=== PATIENT | female | born 1975 | race American Indian/Alaskan Native ===

== ENCOUNTER 2016-05-25 17:17 | Emergency (ER) | payer BC ==
[2016-05-25 18:00] VITALS: BP 119/84
[2016-05-25 18:50] LABS: Hematocrit 32.8 % (30.3-42.9); Hemoglobin 10.7 gm/dl (10.1-14.3); Mean Corpuscular HGB Conc 33 % (30-34); Mean Corpuscular Hemoglobin 25 pg (28-32); Mean Corpuscular Volume 77 fl (79-97); Mean Platelet Volume 8.9 fl (6-12); Platelet Count 342 K/mm3 (140-440); Red Blood Count 4.25 M/mm3 (3.65-5.03); Red Cell Distribution Width 17.2 % (13.2-15.2); White Blood Count 7.9 K/mm3 (4.5-11.0)
[2016-05-25 18:51] LABS: Basophils % (Auto) 0.8 % (0.0-1.8); Diff Status Complete
[2016-05-25 18:55] LABS: BUN/Creatinine Ratio 11.66; Blood Urea Nitrogen 7 mg/dL (7-17); Calcium 8.8 mg/dL (8.4-10.2); Carbon Dioxide 25 mmol/L (22-30); Chloride 102.7 mmol/L (98-107); Glucose 85 mg/dL (65-100); Potassium 4.2 mmol/L (3.6-5.0); Sodium 140 mmol/L (137-145)
[2016-05-25 19:05] LABS: Anion Gap 17 mmol/L
[2016-05-25 22:39] LABS: Bilirubin,Urine NEG (Negative); Blood,Urine NEG (Negative); Ketones,Urine TR mg/dL (Negative); Leukocyte Esterase,Urine NEG (Negative); Mucus,Urine 3+ /HPF; Nitrite,Urine NEG (Negative); Protein,Urine <15 mg/dL mg/dL (Negative); Urobilinogen,Urine < 2.0 mg/dL (<2.0)
[2016-05-25] MEDS ORDERED: MORPHINE IV ONE (22:51)
[2016-05-25] MEDS ORDERED: TORADOL IV ONE (22:51)
[2016-05-25] MEDS ORDERED: NACL 0.9% 1000 ML 1,000 ML IV ONE (22:52)
--- NOTE | 2016-05-25 22:53 | Emergency Department Report ---
ED General Adult HPI - General Chief complaint: Abdominal Pain Stated complaint: ABD PAIN/NAUSEA Time Seen by Provider: 05/25/16 22:39 Source: patient, RN notes reviewed Mode of arrival: Ambulatory Limitations: No Limitations - History of Present Illness Initial comments: This is a 40-year-old female, previously unknown to me. She does not have a primary care doctor. Denies a history of abdominal surgeries. Presents to the ER complaining of right upper quadrant pain and left lower quadrant pain. This is associated with nausea and vomiting. Last menstrual period was 2 weeks ago. Abdominal pain is achy, increases with palpation, decreases with rest. She reports feeling intermittently constipated, and has describes intermittent diarrhea. No vaginal discharge that she is aware of. Symptoms are intermittent. -: Gradual Location: abdomen Quality: aching Consistency: intermittent Improves with: rest Worsens with: movement Associated Symptoms: loss of appetite, malaise. denies: confusion, chest pain, cough, diaphoresis, headaches, shortness of breath, syncope, weakness - Related Data Previous Rx's Medication Instructions Recorded Last Taken Type Dicyclomine [Bentyl] 10 mg PO QID PRN #20 capsule 05/26/16 Unknown Rx Ondansetron [Zofran Odt] 4 mg PO QID PRN #20 tab.rapdis 05/26/16 Unknown Rx Allergies Allergy/AdvReac Type Severity Reaction Status Date / Time No Known Allergies Allergy Verified 05/25/16 22:53 ED Review of Systems ROS: Stated complaint: ABD PAIN/NAUSEA Other details as noted in HPI Constitutional: denies: fever Eyes: denies: vision change ENT: denies: epistaxis Respiratory: denies: cough, shortness of breath, wheezing Cardiovascular: denies: chest pain, palpitations Gastrointestinal: abdominal pain, nausea, vomiting, diarrhea Genitourinary: as per HPI. denies: dysuria, discharge Musculoskeletal: denies: back pain Skin: denies: lesions Neurological: denies: headache ED Past Medical Hx - Past Medical History Previous Medical History?: No - Surgical History Past Surgical History?: No - Social History Smoking Status: Never Smoker Substance Use Type: None - Medications Home Medications: Home Medications Medication Instructions Recorded Confirmed Last Taken Type Dicyclomine [Bentyl] 10 mg PO QID PRN #20 capsule 05/26/16 Unknown Rx Ondansetron [Zofran Odt] 4 mg PO QID PRN #20 tab.rapdis 05/26/16 Unknown Rx ED Physical Exam - General Limitations: No Limitations General appearance: alert, in no apparent distress - Head Head exam: Present: atraumatic, normocephalic - Eye Eye exam: Present: normal appearance, EOMI. Absent: nystagmus - ENT ENT exam: Present: normal exam, normal orophraynx, mucous membranes moist, normal external ear exam - Neck Neck exam: Present: normal inspection, full ROM. Absent: tenderness, meningismus - Respiratory Respiratory exam: Present: normal lung sounds bilaterally. Absent: respiratory distress, wheezes, rales, rhonchi, stridor, chest wall tenderness - Cardiovascular Cardiovascular Exam: Present: regular rate, normal rhythm, normal heart sounds. Absent: bradycardia, tachycardia, irregular rhythm, systolic murmur, diastolic murmur, rubs, gallop - GI/Abdominal GI/Abdominal exam: Present: soft, tenderness, normal bowel sounds, other (there is minimal right upper quadrant tenderness. There is negative Huynh sign. There is no right lower quadrant tenderness. There is left lower quadrant tenderness.). Absent: distended, guarding, rebound, rigid, pulsatile mass - External exam: Present: normal external exam Speculum exam: Present: normal speculum exam Bi-manual exam: Present: normal bi-manual exam, other (escorted by MOSES Nunez). Absent: cervical motion tendernes, adnexal tenderness, uterine enlargement, uterine tenderness - Extremities Exam Extremities exam: Present: normal inspection, full ROM, normal capillary refill. Absent: tenderness, pedal edema, joint swelling, calf tenderness - Back Exam Back exam: Present: normal inspection, full ROM. Absent: tenderness, CVA tenderness (R), CVA tenderness (L), muscle spasm, paraspinal tenderness, vertebral tenderness - Neurological Exam Neurological exam: Present: alert, oriented X3, normal gait, other (Extraocular movements intact. Tongue midline. No facial droop. Facial sensation intact to light touch in the V1, V2, V3 distribution bilaterally. 5 and 5 strength in 4 extremities.. Sensation is intact to light touch in 4 extremities.). Absent : motor sensory deficit - Psychiatric Psychiatric exam: Present: normal affect, normal mood - Skin Skin exam: Present: warm, dry, intact, normal color. Absent: rash ED Course Vital Signs 05/25/16 17:57 Temperature 99.0 F Pulse Rate 84 Respiratory 18 Rate Blood Pressure 119/84 O2 Sat by Pulse 100 Oximetry - Reevaluation(s) Reevaluation #1: 05/26/16 00:42 Differential diagnosis: Renal colic, biliary disease, ovarian cyst, pelvic inflammatory disease, urinary tract infection, constipation, Musa-Newton Oniel syndrome Assessment and plan: 40-year-old female with low-grade temperature, respiratory quadrant tenderness, left lower quadrant tenderness. She has a benign gynecologic examination. Laboratory studies not consistent with pancreatitis, pyelonephritis, or urinary tract infection. She is not . A wet prep demonstrated trichomoniasis. She will be treated empirically with metronidazole, azithromycin, ceftriaxone. She was given pain medication and IV fluids. I think biliary disease/cholecystitis is unlikely given normal liver function tests, normal lipase, and lack of a positive Huynh sign. A CT scan of the abdomen and pelvis with IV contrast is pending. Reevaluation #2: 05/26/16 01:21 CT scan demonstrates no surgical disease. Enteritis is suggested , which goes along with the patient's history of nausea, vomiting, diarrhea. Wet prep demonstrated trichomoniasis, she is treated empirically with ceftriaxone, doxycycline, azithromycin. She is tolerating liquid feeds. She will be discharged with pain medication, nausea medication, instructions to follow up with primary care and gynecology. Return precautions are reviewed. ED Medical Decision Making - Lab Data Result diagrams: 05/25/16 18:15 05/25/16 18:15 Vital Signs 05/25/16 17:57 Temperature 99.0 F Pulse Rate 84 Respiratory 18 Rate Blood Pressure 119/84 O2 Sat by Pulse 100 Oximetry Lab Results 05/25/16 05/25/16 05/25/16 Range/Units 18:15 18:15 22:40 WBC 7.9 (4.5-11.0) K/mm3 RBC 4.25 (3.65-5.03) M/mm3 Hgb 10.7 (10.1-14.3) gm/dl Hct 32.8 (30.3-42.9) % MCV 77 L (79-97) fl MCH 25 L (28-32) pg MCHC 33 (30-34) % RDW 17.2 H (13.2-15.2) % Plt Count 342 (140-440) K/mm3 Lymph % (Auto) 30.4 (13.4-35.0) % Coles % (Auto) 6.7 (0.0-7.3) % Eos % (Auto) 2.0 (0.0-4.3) % Baso % (Auto) 0.8 (0.0-1.8) % Lymph # 2.4 (1.2-5.4) K/mm3 Coles # 0.5 (0.0-0.8) K/mm3 Eos # 0.2 (0.0-0.4) K/mm3 Baso # 0.1 (0.0-0.1) K/mm3 Add Manual Diff Complete Seg Neutrophils % 60.1 (40.0-70.0) % Seg Neutrophils # 4.7 (1.8-7.7) K/mm3 Sodium 140 (137-145) mmol/L Potassium 4.2 (3.6-5.0) mmol/L Chloride 102.7 (98-107) mmol/L Carbon Dioxide 25 (22-30) mmol/L Anion Gap 17 mmol/L BUN 7 (7-17) mg/dL Creatinine 0.6 L (0.7-1.2) mg/dL Estimated GFR > 60 ml/min BUN/Creatinine Ratio 11.66 % Glucose 85 (65-100) mg/dL Calcium 8.8 (8.4-10.2) mg/dL Total Bilirubin (0.1-1.2) mg/dL Direct Bilirubin (0-0.2) mg/dL Indirect Bilirubin mg/dL AST (5-40) units/L ALT (7-56) units/L Alkaline Phosphatase (35-129) units/L Total Protein (6.3-8.2) g/dL Albumin (3.9-5) g/dL Albumin/Globulin Ratio % Lipase (13-60) units/L Urine Color (Yellow) Urine Turbidity (Clear) Urine pH (5.0-7.0) Ur Specific [place] (1.003-1.030) Urine Protein (Negative) mg/dL Urine Glucose (UA) (Negative) mg/dL Urine Ketones (Negative) mg/dL Urine Blood (Negative) Urine Nitrite (Negative) Urine Bilirubin (Negative) Urine Urobilinogen (<2.0) mg/dL Ur Leukocyte Esterase (Negative) Urine WBC (Auto) (0.0-6.0) /HPF Urine RBC (Auto) (0.0-6.0) /HPF U Epithel Cells (Auto) (0-13.0) /HPF Urine Mucus /HPF Urine HCG, Qual Negative (Negative) 05/25/16 05/25/16 Range/Units Unknown Unknown WBC (4.5-11.0) K/mm3 RBC (3.65-5.03) M/mm3 Hgb (10.1-14.3) gm/dl Hct (30.3-42.9) % MCV (79-97) fl MCH (28-32) pg MCHC (30-34) % RDW (13.2-15.2) % Plt Count (140-440) K/mm3 Lymph % (Auto) (13.4-35.0) % Coles % (Auto) (0.0-7.3) % Eos % (Auto) (0.0-4.3) % Baso % (Auto) (0.0-1.8) % Lymph # (1.2-5.4) K/mm3 Coles # (0.0-0.8) K/mm3 Eos # (0.0-0.4) K/mm3 Baso # (0.0-0.1) K/mm3 Add Manual Diff Seg Neutrophils % (40.0-70.0) % Seg Neutrophils # (1.8-7.7) K/mm3 Sodium (137-145) mmol/L Potassium (3.6-5.0) mmol/L Chloride (98-107) mmol/L Carbon Dioxide (22-30) mmol/L Anion Gap mmol/L BUN (7-17) mg/dL Creatinine (0.7-1.2) mg/dL Estimated GFR ml/min BUN/Creatinine Ratio % Glucose (65-100) mg/dL Calcium (8.4-10.2) mg/dL Total Bilirubin 0.4 (0.1-1.2) mg/dL Direct Bilirubin < 0.2 (0-0.2) mg/dL Indirect Bilirubin 0.2 mg/dL AST 16 (5-40) units/L ALT < 5 L (7-56) units/L Alkaline Phosphatase 41 (35-129) units/L Total Protein 7.4 (6.3-8.2) g/dL Albumin 4.2 (3.9-5) g/dL Albumin/Globulin Ratio 1.3 % Lipase 38 (13-60) units/L Urine Color Yellow (Yellow) Urine Turbidity Clear (Clear) Urine pH 5.0 (5.0-7.0) Ur Specific [place] 1.023 (1.003-1.030) Urine Protein <15 mg/dl (Negative) mg/dL Urine Glucose (UA) Neg (Negative) mg/dL Urine Ketones Tr (Negative) mg/dL Urine Blood Neg (Negative) Urine Nitrite Neg (Negative) Urine Bilirubin Neg (Negative) Urine Urobilinogen < 2.0 (<2.0) mg/dL Ur Leukocyte Esterase Neg (Negative) Urine WBC (Auto) 1.0 (0.0-6.0) /HPF Urine RBC (Auto) 2.0 (0.0-6.0) /HPF U Epithel Cells (Auto) 1.0 (0-13.0) /HPF Urine Mucus 3+ /HPF Urine HCG, Qual (Negative) - Radiology Data Radiology results: report reviewed, image reviewed CT scan of abdomen and pelvis with IV contrast: Trace bilateral pleural effusions. Linear atelectasis noted at the lung bases. No calcified gallstones or biliary dilatation. Mild focal fatty infiltration of the liver along the falciform ligament. Small amount of free fluid in the pelvis within physiologic limits. The ovaries are grossly unremarkable. The appendix is normal in caliber. Mild enteritis is a possibility. There are a few fluids filled loops of small bowel. Mild enteritis is not entirely excluded. Critical care attestation.: If time is entered above; I have spent that time in minutes in the direct care of this critically ill patient, excluding procedure time. ED Disposition Clinical Impression: Abdominal pain Disposition: DISCHARGED TO HOME OR SELFCARE Is pt being admited?: No Does the pt Need Aspirin: No Condition: Stable Instructions: Abdominal Pain (ED) Additional Instructions: As we discussed, your laboratory studies appeared to be within normal limits. You are not . Wet prep demonstrated trichomoniasis, which is considered a sexually transmitted disease. You have been treated for this, and empirically treated for gonorrhea and Chlamydia. CT scan of the abdomen and pelvis demonstrated trace water on the lungs, not immediately dangerous, this should be followed up by primary care doctor within the next week. The CAT scan also demonstrated nonspecific inflammation of the small bowel, most likely consistent with a viral illness. Given all this, you'll be treated empirically for disease called pelvic inflammatory disease. We typically treat young females with unexplained lower abdominal pain to protect your ability to have children safely in the future. Cultures were sent today, and results will be available next 3-5 days. Please have your primary care doctor call the medical records department to obtain your culture results. Take the antibiotic therapy as directed. Take the nausea medication and pain medication as directed. I recommend outpatient testing for sexually transmitted diseases, including hepatitis, syphilis and HIV. I also recommend that you abstain from sexual activity until you have completed her antibiotic therapy, a physician states that it is safe for you to resume sexual activity, and any partners that you have been sexually active with have been tested/treated/evaluated for sexual transmitted diseases. Please follow-up with physician within 3-5 days. I recommend that you return to the ER right away with worsening pain, migration of pain, intractable nausea/vomiting, inability tolerate liquid feeds. Dr. Peters is a local primary care doctor. [facility] are local gynecology practices. Referrals: [facility] [Primary Care Provider] - 3-5 Days MIKE PETERS MD [Staff Physician] - 3-5 Days [facility] [Provider Group] - 3-5 Days [facility]SE, [facility] [Provider Group] - 3-5 Days [facility] [Provider Group] - 3-5 Days
[2016-05-25 23:59] LABS: Albumin 4.2 g/dL (3.9-5); Albumin/Globulin Ratio 1.3 %; Alkaline Phosphatase 41 units/L (35-129); Bilirubin,Total 0.4 mg/dL (0.1-1.2); Lipase 38 units/L (13-60); Total Protein 7.4 g/dL (6.3-8.2)
[2016-05-26] LABS: Alanine Aminotransferase < 5 units/L (7-56); Bilirubin,Direct < 0.2 mg/dL (0-0.2); Bilirubin,Indirect 0.2 mg/dL
[2016-05-26] MEDS ORDERED: NACL ONE (00:32)
[2016-05-26] MEDS ORDERED: FLAGYL PO ONE (00:35)
[2016-05-26] MEDS ORDERED: ZITHROMAX PO ONE (00:35)
[2016-05-26] MEDS ORDERED: ROCEPHIN 250 MG in NACL 0.9% 50 ML IV ONE (00:35)
[2016-05-26] MEDS ORDERED: VIBRAMYCIN PO ONE (00:35)
[2016-05-26] MEDS ORDERED: TORADOL ONE (01:04)
[2016-05-26] MEDS ORDERED: MORPHINE ONE (01:06)
--- NOTE | 2016-05-26 01:10 | Cat Scan Report ---
FINAL REPORT EXAM: CT ABDOMEN PELVIS W CON HISTORY: ruq pain, llq pain, n/v COMPARISON: None available. TECHNIQUE: Contiguous axial images were obtained. Additional sagittal and coronal reformatted images were obtained. Administration of IV contrast given per institution protocol. Images submitted for interpretation. FINDINGS: Trace bilateral pleural effusions. Mild linear atelectasis at the lung bases. No calcified gallstones or biliary dilatation. Mild focal fatty infiltration of liver along the falciform ligament. Homogeneous enhancement spleen and pancreas. No adrenal mass. No solid renal lesion or hydronephrosis. Aorta and IVC are normal in caliber. Urinary bladder is unremarkable. The uterus is retroverted. Ovaries are grossly unremarkable. Small amount of free fluid in the pelvis within physiologic limits. The appendix is normal in caliber measuring 6 millimeters. No adjacent fat stranding or fluid. There are few fluid-filled small bowel loops. Mild enteritis cannot be entirely excluded. Lumbar vertebral body heights are preserved. Bony pelvis is grossly intact. IMPRESSION: Small amount of free fluid in the pelvis within physiologic limits. Uterus and ovaries are grossly unremarkable by CT. There are few fluid-filled small bowel loops. Mild enteritis cannot be entirely excluded. Remaining bowel loops normal in caliber. The appendix is normal in caliber. Trace bilateral pleural effusions with linear atelectasis at the lung bases.
[2016-05-26] MEDS ORDERED: ZOFRAN ONE (01:16)
[2016-05-26] MEDS ORDERED: ROCEPHIN ONE (01:19)
[2016-05-26] MEDS ORDERED: NACL 0.9% 100 ML ONE (01:20)
--- NOTE | 2016-05-26 02:51 | Admit Criteria Form ---
Admission Criteria Documentation: ABDOMINAL PAIN Clinical Indications for Admission to Inpatient Care (Place 'X' for any and all applicable criteria): Admission is indicated for ANY ONE of the following(1)(2)(3)(4)(5): [ X]I. Inpatient admission required rather than observation care (Also use Abdominal Pain: Observation Care, as appropriate) because of ANY ONE of the following: [ ]a) Severe pain requiring acute inpatient management [ ]b) Identification of etiology/finding that requires inpatient care (eg, aortic dissection, free air) [ ]c) Absent bowel sounds with complete ileus(6) [ ]d) Suspected toxic megacolon [ ]e) Severe electrolyte abnormalities requiring inpatient care [ ]f) High fever or infection requiring inpatient admission as indicated by ANY ONE of following(7)(8): [ ] i) Appropriate outpatient or observational care antimicrobial treatment unavailable, not effective, or not feasible [ ] ii) Documented bacteremia [ ] iii) Temperature > 104.9 degrees F (oral) [ ] iv) T >103.1 F (oral) or < 96.8 F(rectal) that does not respond to all emergency treatment measures [ ]g) Signs of intestinal obstruction [B] [ ]h) Hemodynamic instability [ ]i) IV fluid to replace significant ongoing losses (greater than 3 L/m2 per day) (12)(13) [ ]j) Percutaneous or open drainage (eg, abscess, biliary tract ) procedures [ ]k) Parenteral nutrition regimen that must be implemented on inpatient basis [ X]l) Other condition,treatment or monitoring requiring inpatient admission. [ ]II. Peritoneal signs present [ ]III. Surgery needed that cannot be performed on an ambulatory basis. [ ]IV. Evaluation requires patient to not eat or drink for extended period ( eg, more than 24 hours). [ ]V. Contraindications and/or Inappropriate clinical situations for Observational Care in patients with abdominal pain, when ANY ONE of the following is required: [ ]a) Thorough evaluation is required to prevent catastrophic events due to delays in diagnosing (e.g.Mesenteric ischemia) 1,3 [ ]b) Patient with severe pathology or with chronic symptoms unlikely to improve in the ED stay (3) [ ]. General contraindications and/or Inappropriate clinical situations for Observational Care in patients with abdominal pain, when ANY ONE of the following is required: [ ]a) Prediction of prolongation of LOS based on ANY ONE of the following may be considered as a contraindication for observational care 2, 3, 4, 5, 6, 7, 8, 9, 10, 11 [ ]i) Age > 65 yrs. [ ]ii) Patient arriving by ambulance [ ]iii) Patient with high acuity [ ]iv) Patient requiring vital sign monitoring [ ]v) Patient on IV medication [ ]b) Systolic blood pressures 180mmHg 3,12 [ ]c) Patient with altered mental status including delirium and other alteration of consciousness, (3) [ ]d) Patient whose discharge disposition will be to a prison home or rehabilitation home should not be managed in Emergency Department Observation Unit. CMS rule requires 3 days hospital stay before such placement.3,13 [ ]e) Patient with failure to thrive due to broad array of etiologies 3,16,17 [ ]f) Inability to ambulate 3,14 Extended stay beyond goal length of stay may be needed for(2)(3): [ ]a) Persistent abdominal pain with suspected intra-abdominal process [ ]b) Diagnosed condition requiring continued stay (e.g., pancreatitis, complicated diverticulitis) [ ]c) Surgery (e.g., colectomy) The original [email or web address] content created by [employer] has been revised. The portions of the content which have been revised are identified through the use of italic text or in bold, and [facility] has neither reviewed nor approved the modified material.All other unmodified content is copyright [email or web address]. Please see references footnoted in the original [email or web address] edition 2016 Admission Criteria Met: Yes
== END 2016-05-26 02:32 | disposition home or self-care (01) ==
LOC: ED 17:17
DX: R10.84 Generalized abdominal pain (principal)
CPT/HCPCS: 36415; 74177; 80048; 80074; 81001; 81025; 83690; 85025; 87210; 87591; 96365; 96375; 99285; J0696; J1885; J2270; J2405; J7030; Q9967